=== PATIENT | male | born 1945 | race Caucasian/White ===

== ENCOUNTER 2018-10-04 18:48 | Emergency (ER) | payer MEDICARE, MEDICAID ==
[2018-10-04 19:26] VITALS: RESP 16; TEMP 99.2; BMI 21.6
--- NOTE | 2018-10-04 19:35 | ED PDOC ---
Arrival/HPI - General Chief Complaint: Trauma Time Seen by Provider: 10/04/18 18:54 Historian: Patient - History of Present Illness Narrative History of Present Illness (Text): 10/04/18 19:30 A 73 year old patient, with no significant past medical history, presents to the ED complaining of left eye discomfort and redness s/p fall last night. Patient reports falling on his luggage and hitting his head and left eye. Patient notes associated tearing, watering of eye and feeling like "something is inside the eye." Patient also notes pain on left side of his head due to a bruise caused by the fall. Patient denies any headache, dizziness, vision changes, fevers, chills, chest pain, dyspnea on exertion, cough, abdominal pain, nausea, vomiting, diarrhea, back pain, neck pain, urinary/bowel changes, or any other complaints. PMD: Dr. Hilliard Time/Duration: 24 hours (Last night) Symptom Onset: Gradual Symptom Course: Unchanged Activities at Onset: Light Past Medical History - Provider Review Nursing Documentation Reviewed: Yes - Cardiac Hx Cardiac Disorders: Yes Hx Hypertension: Yes - Pulmonary Hx Respiratory Disorders: No - Neurological Hx Neurological Disorder: No - HEENT Hx HEENT Disorder: No - Renal Hx Renal Disorder: No - Endocrine/Metabolic Hx Endocrine Disorders: No - Hematological/Oncological Hx Blood Disorders: No - Integumentary Hx Dermatological Disorder: No - Musculoskeletal/Rheumatological Hx Musculoskeletal Disorders: Yes Hx Falls: No Hx Fractures: Yes Other/Comment: Hx scoliosis. Hx fractures bilateral forearm - Gastrointestinal Hx Gastrointestinal Disorders: Yes Hx Gastroesophageal Reflux: Yes - Genitourinary/Gynecological Hx Genitourinary Disorders: No - Psychiatric Hx Psychophysiologic Disorder: No Hx Depression: No Hx Emotional Abuse: No Hx Physical Abuse: No Hx Substance Use: No - Surgical History Hx Orthopedic Surgery: Yes (Bilateral forearm fracture surgery.) Other/Comment: Hx stomach surgery. - Anesthesia Hx Anesthesia: Yes Hx Anesthesia Reactions: No Hx Malignant Hyperthermia: No - Suicidal Assessment Feels Threatened In Home Enviroment: No Family/Social History - Physician Review Nursing Documentation Reviewed: Yes Family/Social History: Unknown Family HX Smoking Status: Current Some Days Smoker Hx Alcohol Use: No Hx Substance Use: No Hx Substance Use Treatment: Yes Allergies/Home Meds Allergies/Adverse Reactions: Allergies No Known Allergies Allergy (Verified 10/04/18 20:03) Home Medications: Home Meds Medication Instructions Recorded Confirmed Acetaminophen/Oxycodone Hydr 1 tab PO 10/16/11 10/16/11 [Percocet 500 mg-7.5 mg] Amlodipine Besylate 10/16/11 10/16/11 Carisoprodol [Soma] 10/16/11 10/16/11 Esomeprazole Magnesium [Nexium] 40 mg PO 10/16/11 10/16/11 Eszopiclone [Lunesta] 3 mg PO 10/16/11 10/16/11 Methadone 10 mg PO 10/16/11 10/16/11 Pregabalin [Lyrica] 10/16/11 10/16/11 Rosuvastatin Calcium [Crestor] 10/16/11 10/16/11 Venlafaxine Hydrochloride [Effexor] 75 mg PO 10/16/11 10/16/11 Review of Systems - Physician Review All systems were reviewed & negative as marked: Yes - Review of Systems Constitutional: absent: Fatigue, Fevers Eyes: absent: Vision Changes ENT: absent: Hearing Changes Respiratory: absent: Wheezing Cardiovascular: absent: Chest Pain Gastrointestinal: absent: Abdominal Pain, Nausea, Vomiting Genitourinary Male: absent: Dysuria, Hematuria Musculoskeletal: absent: Back Pain, Neck Pain Skin: absent: Rash Neurological: absent: Headache, Dizziness Endocrine: absent: Diaphoresis Hemo/Lymphatic: absent: Adenopathy Psychiatric: absent: Anxiety, Depression Physical Exam Vital Signs Temp Pulse Resp BP Pulse Ox 10/04/18 19:19 99.2 F 75 16 145/72 96 Temperature: Afebrile Blood Pressure: Normal Pulse: Regular Respiratory Rate: Normal Appearance: Positive for: Well-Appearing, Non-Toxic, Comfortable Pain Distress: Mild Mental Status: Positive for: Alert and Oriented X 3 - Systems Exam Head: Present: Other (Hematoma to left yazidism) Pupils: Present: PERRL Extroacular Muscles: Present: EOMI Conjunctiva: Present: Injected, Other (Redness to sclera) Respiratory/Chest: Present: Clear to Auscultation, Good Air Exchange. No: Respiratory Distress, Accessory Muscle Use Cardiovascular: Present: Regular Rate and Rhythm, Normal S1, S2. No: Murmurs Abdomen: No: Tenderness, Distention, Peritoneal Signs Upper Extremity: Present: Neurovascularly Intact, Other (4/5 motor strength) Lower Extremity: Present: Neurovascularly Intact, Other (5/5 motor strength) Neurological: Present: GCS=15, CN II-XII Intact, Speech Normal. No: Other (Facial asymmetry) Psychiatric: Present: Alert, Oriented x 3, Other (Can answer questions appropriately) Medical Decision Making ED Course and Treatment: 10/04/18 19:42 Impression: 73 year old patient who presents to the ED for left eye pain and redness s/p fall. Differential Diagnosis included but are not limited to: --Corneal abrasion --Intracranial hemorrhage --Calavarial fracture Plan: -- Cervical Spine CT -- Head CT -- Labs --Slit Lamp exam -- Reassess and disposition Prior Visits: Notes and results from previous visits were reviewed. Progress Notes: 10/04/18 20:59 Labs reviewed with no leukocytosis, coagulation derangements or electrolyte abnormalities. Bedside slit lamp exam reveals corneal abrasion present near lower outer portion of eye. CTH negative for acute intracranial pathology with no acute abnormalities in cervical spine. Patient updated on lab findings and will follow up in clinic. He is advised to monitor his symptoms for worsening and to return to the ED should symptoms worsen. Scripts provided with opportunity for questions given and answered. He is stable for discharge. - Lab Interpretations Lab Results: 10/04/18 20:25 10/04/18 20:25 Lab Results 10/04/18 20:25: Sodium 138, Potassium 4.3, Chloride 104, Carbon Dioxide 26, Anion Gap 12, BUN 25 H, Creatinine 1.4, Est GFR ( Amer) > 60, Est GFR (Non-Af Amer) 50, Random Glucose 96, Calcium 8.9, Total Bilirubin 0.3, AST 22, ALT 12, Alkaline Phosphatase 61, Total Protein 7.4, Albumin 4.0, Globulin 3.4, Albumin/Globulin Ratio 1.2 10/04/18 20:25: PT 12.8 H, INR 1.15, APTT 26.4 L 10/04/18 20:25: WBC 5.9, RBC 4.94, Hgb 14.2, Hct 42.6, MCV 86.2, MCH 28.7, MCHC 33.3, RDW 15.6 H, Plt Count 180, MPV 9.9, Neut % (Auto) 37.1 L, Lymph % (Auto) 48.9 H, Harding % (Auto) 10.3 H, Eos % (Auto) 3.4, Baso % (Auto) 0.3, Lymph # (Auto) 2.9, Harding # (Auto) 0.6, Eos # (Auto) 0.2, Baso # (Auto) 0.02, Absolute Neuts (auto) 2.19 I have reviewed the lab results: Yes - RAD Interpretation Narrative RAD Interpretations (Text): CT Head: BRAIN: No acute intraparenchymal hemorrhage. No mass lesion. No CT evidence for acute t erritorial infarct. No midline shift or extra-axial collections. There is mild- moderate diffuse age-appropriate cerebral and cerebellar atrophy present. There are bilateral periventricular and subcortical white matter hypolucencies compatible with mild chronic microvascular disease. A 1.1 cm old lacunar infarction is seen in the right anterior periventricular white matter tracts. Focal calcification is seen in the basal ganglia bilaterally; usually an idiopathic finding. VENTRICLES: No hydrocephalus. VASCULAR: Atherosclerotic vascular plaquing is seen in the carotid siphons bilaterally. ORBITS: The orbits are unremarkable. SINUSES AND MASTOIDS: The paranasal sinuses and mastoid air cells are clear. BONES: No fracture. SOFT TISSUES: Unremarkable. IMPRESSION: 1. No acute intracranial abnormality. 2. Mild-moderate age-appropriate cerebral and cerebellar atrophy. 3. Evidence of mild chronic microvascular disease. 4. Atherosclerotic vascular plaquing within the carotid siphons bilaterally. 5. 1.1 cm old lacunar infarction in the right anterior periventricular white matter tracts. Electronically signed on October 04, 2018 8:53:43 PM EDT by: Du Ho M.D., M.B.A., Certified By [employer] Trained MRI and CT Specialist CT Cervical Spine: ALIGNMENT: Bony alignment is anatomic. DEGENERATIVE CHANGES: No significant canal stenosis or neural foraminal narrowing evident. There is advanced degenerative disc disease noted at C3-4, C4-5, C5-6, C6-7, C7-T1, T1-2. Mild AP spinal canal stenosis is noted at C5-6 and C6-7. There is left hypertrophic apophyseal facet arthropathy at C3-4, right hypertrophic apophyseal facet arthropathy at C4-5. Bilateral uncovertebral facet arthropathy is seen at C3-4, C4-5, C5-6, C6-7. Marginal osteophytic spurring arises from the C3-T2 vertebrae. SOFT TISSUES: The prevertebral soft tissues are within normal limits. Atheromatous calcific plaquing is seen within the left carotid bulb. BONES: No acute fracture or aggressive appearing osseous lesion. IMPRESSION: 1. No acute cervical spine abnormality. 2. Multilevel degenerative disc disease as described above. 3. Bilateral apophyseal and uncovertebral facet arthropathy as described above. 4. Mild AP spinal canal stenosis seen at C5-6 and C6-7. 5. Atheromatous calcific plaquing noted within the left carotid bulb. Electronically signed on October 04, 2018 8:53:58 PM EDT by: Du Ho M.D., M.B.A., Certified By [employer] Trained MRI and CT Specialist Pumper Helper: Radiologist - Scribe Statement The provider has reviewed the documentation as recorded by the Scribe Trenton Reis Provider Scribe Attestation: All medical record entries made by the Scribe were at my direction and personally dictated by me. I have reviewed the chart and agree that the record accurately reflects my personal performance of the history, physical exam, medical decision making, and the department course for this patient. I have also personally directed, reviewed, and agree with the discharge instructions and disposition. Disposition/Present on Arrival - Present on Arrival Any Indicators Present on Arrival: No History of DVT/PE: No History of Uncontrolled Diabetes: No Urinary Catheter: No History of Decub. Ulcer: No History Surgical Site Infection Following: None - Disposition Have Diagnosis and Disposition been Completed?: Yes Diagnosis: Fall, Contusion, Corneal abrasion, left Disposition: HOME/ ROUTINE Disposition Time: 21:10 Patient Plan: Discharge Patient Problems: Current Active Problems Problem Status Onset Fall Acute Contusion Acute Corneal abrasion, left Acute Condition: STABLE Discharge Instructions (ExitCare): Taking Care of Bruises, Contusion (DC), Corneal Abrasion (DC) Print Language: FAROESE Additional Instructions: All medical record entries made by the Scribe were at my direction and pe rsonally dictated by me. I have reviewed the chart and agree that the record accurately reflects my personal performance of the history, physical exam, medical decision making, and the department course for this patient. I have also personally directed, reviewed, and agree with the discharge instructions and disposition. Please apply eye drops as prescribed Please monitor for headache, vomiting, fevers, feelings of fainting, return to the ED for evaluation Prescriptions: Polymyxin B Sulf/Trimethoprim [Polymyxin B-Tmp Eye Drops] 10 ml OP TID #2 drops Referrals: Jose Horan MD [Staff Provider] - Follow up with primary Forms: [employer] (Swedish), WORK NOTE
[2018-10-04 20:37] LABS: BASO # 0.02 K/mm3 (0.0-2.0); BASO % 0.3 % (0.0-3.0); EOS # 0.2 (0.0-0.7); EOS % 3.4 % (1.5-5.0); HEMOGLOBIN 14.2 g/dL (14.0-18.0); LYMPH # 2.9 (1.2-3.4); LYMPH % 48.9 % (22.0-35.0); MEAN CELL VOLUME 86.2 fl (80.0-105.0); MEAN CORPUSCULAR HEMOGLOBIN 28.7 pg (25.0-35.0); MEAN CORPUSCULAR HGB CONC 33.3 g/dl (31.0-37.0); MEAN PLATELET VOLUME 9.9 fl (7.0-11.0); MONO # 0.6 (0.1-0.6); MONO % 10.3 % (1.0-6.0); RBC 4.94 10^6/uL (3.5-6.1); RED CELL DISTRIBUTION WIDTH 15.6 % (11.5-14.5); WHITE BLOOD COUNT 5.9 10^3/uL (4.5-11.0)
[2018-10-04 20:44] LABS: INR 1.15; PARTIAL THROMBOPLASTIN TIME 26.4 Seconds (26.9-38.3); PROTHROMBIN TIME 12.8 SECONDS (9.4-12.5)
[2018-10-04 20:45] VITALS: BP 138/77; PULSE 66; O2SAT 95
[2018-10-04 20:57] LABS: ALB/GLOB RATIO 1.2 (1.1-1.8); ALT/SGPT 12 U/L (7-56); AST/SGOT 22 U/L (17-59); BLOOD UREA NITROGEN 25 mg/dL (7-21); CALCIUM 8.9 mg/dL (8.4-10.5); GFR NON-AFRICAN AMERICAN 50
--- NOTE | 2018-10-05 09:48 | CT ---
Date of service: 10/04/2018 PROCEDURE: CT HEAD WITHOUT CONTRAST. HISTORY: s/p fall COMPARISON: None available. TECHNIQUE: Axial computed tomography images were obtained through the head/brain without intravenous contrast. Radiation dose: Total exam DLP = 816.9 mGy-cm. This CT exam was performed using one or more of the following dose reduction techniques: Automated exposure control, adjustment of the mA and/or kV according to patient size, and/or use of iterative reconstruction technique. FINDINGS: HEMORRHAGE: No intracranial hemorrhage. BRAIN: No mass effect or edema. Chronic microvascular changes are seen in the basal ganglia and periventricular white matter. VENTRICLES: Unremarkable. No hydrocephalus. CALVARIUM: Unremarkable. PARANASAL SINUSES: Unremarkable as visualized. No significant inflammatory changes. MASTOID AIR CELLS: Unremarkable as visualized. No inflammatory changes. OTHER FINDINGS: The report concurs with the preliminary [facility] report IMPRESSION: No acute intracranial findings
--- NOTE | 2018-10-05 09:51 | CT ---
Date of service: 10/04/2018 PROCEDURE: CT Cervical Spine without contrast HISTORY: fall COMPARISON: None available. TECHNIQUE: Axial computed tomography images were obtained of the cervical spine without the use of intravenous contrast. Coronal and sagittal reformatted images were created and reviewed. Radiation dose: Total exam DLP = 480.18 mGy-cm. This CT exam was performed using one or more of the following dose reduction techniques: Automated exposure control, adjustment of the mA and/or kV according to patient size, and/or use of iterative reconstruction technique. FINDINGS: VERTEBRAE: No fracture. Normal alignment. No destructive bony lesion. DISCS/SPINAL CANAL/NEURAL FORAMINA: There is multilevel disc degeneration and facet degeneration. There is mild foraminal stenosis throughout the spine. There is mild central stenosis at C5-6 and C6-7 PARASPINAL SOFT TISSUES: Unremarkable. OTHER FINDINGS: The report concurs with the preliminary [facility] report IMPRESSION: No acute findings.
== END 2018-10-04 21:37 | disposition home or self-care (01) ==
LOC: ED 18:48
DX: S05.02XA Injury of conjunctiva and corneal abrasion without foreign body, left eye, initial encounter (principal); W01.198A Fall on same level from slipping, tripping and stumbling with subsequent striking against other object, initial encounter; I10 Essential (primary) hypertension; F17.210 Nicotine dependence, cigarettes, uncomplicated